=== PATIENT | female | born 1990 | race Native Hawaiian/Other Pacific Islander ===

== ENCOUNTER 2016-08-01 00:13 | Emergency (ER) | payer OTHER ==
[2016-08-01 00:33] VITALS: BP 116/72; RESP 16; TEMP 97.7; O2SAT 99
[2016-08-01] MEDS ORDERED: Sodium Chloride 0.9% 1,000 ML IV STA (00:53)
--- NOTE | 2016-08-01 00:55 | ED PDOC ---
HPI: General Adult Time Seen by Provider: 08/01/16 00:38 Chief Complaint (Nursing): Dizziness/Lightheaded History Per: Patient Additional Complaint(s): Pt. states for the past 2 hour she's felt nauseous and weak. Reports that she's also had 3 episodes of non-bloody watery diarrhea. Denies fever, recent travel, sick contacts, melena, hematemesis, BRBPR, previous abdominal surgeries. Past Medical History Reviewed: Historical Data, Nursing Documentation, Vital Signs Vital Signs: Last Vital Signs Temp 97.7 F 08/01/16 00:28 Pulse 75 08/01/16 03:31 Resp 16 08/01/16 00:28 BP 116/72 08/01/16 00:28 Pulse Ox 99 08/01/16 03:31 - Family History Family History: States: No Known Family Hx - Home Medications Home Medications: Ambulatory Orders Medication Instructions Recorded Ondansetron ODT [Zofran ODT] 4 mg PO TID #21 odt 08/01/16 - Allergies Allergies/Adverse Reactions: Allergies Allergy/AdvReac Type Severity Reaction Status Date / Time No Known Allergies Allergy Verified 08/01/16 00:51 Review of Systems ROS Statement: Except As Marked, All Systems Reviewed And Found Negative Gastrointestinal: Positive for: Nausea, Abdominal Pain, Diarrhea Physical Exam - Reviewed Nursing Documentation Reviewed: Yes Vital Signs Reviewed: Yes - Physical Exam Appears: Positive for: Well, Non-toxic, No Acute Distress Head Exam: Positive for: ATRAUMATIC, NORMAL INSPECTION, NORMOCEPHALIC Skin: Positive for: Normal Color, Warm, DRY Eye Exam: Positive for: EOMI, Normal appearance, PERRL ENT: Positive for: Normal ENT Inspection Neck: Positive for: Normal, Painless ROM Cardiovascular/Chest: Positive for: Regular Rate, Rhythm Respiratory: Positive for: CNT, Normal Breath Sounds Gastrointestinal/Abdominal: Positive for: Normal Exam, Bowel Sounds, Soft. Negative for: Tenderness Back: Positive for: Normal Inspection. Negative for: L CVA Tenderness, R CVA Tenderness Extremity: Positive for: Normal ROM Neurologic/Psych: Positive for: Alert, Oriented - Laboratory Results Result Diagrams: 08/01/16 01:00 08/01/16 01:00 - ECG ECG: Positive for: Interpreted By Me ECG Rhythm: Positive for: Sinus Rhythm. Negative for: ST/T Changes Rate: 75 O2 Sat by Pulse Oximetry: 99 - Progress ED Course And Treament: Labs ordered. Zofran 4mg IV, IV NS bolus x 1 given. Re-evaluation Time: 03:30 (Abd remains soft and non-tender.) Condition: Re-examined, Improved Disposition - Clinical Impression Clinical Impression: Gastroenteritis - Patient ED Disposition Is Patient to be Admitted: No - Disposition Referrals: [facility] [Outside] Disposition: Routine/Home Disposition Time: 03:31 Condition: IMPROVED Prescriptions: Ondansetron ODT [Zofran ODT] 4 mg PO TID #21 odt Instructions: Gastroenteritis (ED) Print Language: SYRI[place]
[2016-08-01 01:17] LABS: BASO % 0.6 % (0.0-2.0); EOS # 0.1 K/uL (0.0-0.7); EOS % 2.1 % (0.0-4.0); HEMATOCRIT 38.2 % (34.0-47.0); LYMPH # 1.5 K/uL (1.0-4.3); LYMPH % 22.8 % (20.0-40.0); MEAN CORPUSCULAR HEMOGLOBIN 29.4 pg (27.0-31.0); MEAN PLATELET VOLUME 9.4 fl (7.2-11.7); MONO # 0.3 K/uL (0.0-0.8); MONO % 5.1 % (0.0-10.0); NEUT # 4.5 K/uL (1.8-7.0); NEUT % 69.4 % (50.0-75.0); RED CELL DISTRIBUTION WIDTH 13.4 % (11.5-14.5); WHITE BLOOD COUNT 6.5 K/uL (4.8-10.8)
[2016-08-01 01:24] LABS: RBC URINE 1 /hpf (0-3); URINE BACTERIA RARE (<OCC); URINE BILIRUBIN NEGATIVE (NEGATIVE); URINE BLOOD NEGATIVE (NEGATIVE); URINE COLOR COLORLESS (YELLOW); URINE GLUCOSE (UA) NEG (Normal); URINE KETONE NEGATIVE (NEGATIVE); URINE LEUKOCYTE ESTERASE NEG Leu/uL (Negative); URINE PROTEIN NEGATIVE (NEGATIVE); URINE UROBILINOGEN 0.2-1.0 mg/dL (0.2-1.0); WBC URINE < 1 /hpf (0-5)
[2016-08-01 01:37] LABS: ALB/GLOB RATIO 1.3 (1.0-2.1); ALKALINE PHOSPHATASE 58 U/L (38-126); ALT/SGPT 37 U/L (9-52); AST/SGOT 34 U/L (14-36); BILIRUBIN,TOTAL 0.6 mg/dl (0.2-1.3); BLOOD UREA NITROGEN 15 mg/dl (7-17); CALCIUM 9.3 mg/dL (8.4-10.2); CARBON DIOXIDE 24 mmol/L (22-30); CHLORIDE 105 mmol/L (98-107); GFR AFRICAN-AMERICAN > 60; GLUCOSE,RANDOM 120 mg/dL (65-105); POTASSIUM 4.3 MMOL/L (3.6-5.0); SODIUM 139 mmol/l (132-148); TOTAL PROTEIN 8.3 G/DL (6.3-8.2)
[2016-08-01 03:32] VITALS: PULSE 75
== END 2016-08-01 03:37 | disposition home or self-care (01) ==
LOC: H.ER 00:13
DX: K52.9 Noninfective gastroenteritis and colitis, unspecified (principal); R42 Dizziness and giddiness; R19.7 Diarrhea, unspecified; R53.1 Weakness

== ENCOUNTER 2018-08-05 20:51 | Emergency (ER) | payer SELFPAY ==
[2018-08-05 21:13] VITALS: BMI 18.7
[2018-08-05 21:15] VITALS: RESP 16
[2018-08-05] MEDS ORDERED: Sodium Chloride 0.9% 1,000 ML IV STA (21:56)
[2018-08-05 22:38] LABS: BASO % 0.7 % (0.0-2.0); EOS # 0.1 K/uL (0.0-0.7); EOS % 1.1 % (0.0-4.0); LYMPH # 0.9 K/uL (1.0-4.3); LYMPH % 13.6 % (20.0-40.0); MEAN CELL VOLUME 88.3 fl (81.0-99.0); MEAN CORPUSCULAR HEMOGLOBIN 29.6 pg (27.0-31.0); MEAN CORPUSCULAR HGB CONC 33.6 g/dL (33.0-37.0); MEAN PLATELET VOLUME 9.4 fl (7.2-11.7); MONO # 0.2 K/uL (0.0-0.8); MONO % 2.7 % (0.0-10.0); NEUT # 5.2 K/uL (1.8-7.0); NEUT % 81.9 % (50.0-75.0); NRBC % 0.1 % (0.0-0.0); RBC 4.39 Mil/uL (3.80-5.20); RED CELL DISTRIBUTION WIDTH 12.7 % (11.5-14.5); WHITE BLOOD COUNT 6.4 K/uL (4.8-10.8)
[2018-08-05 22:45] LABS: SQUAMOUS EPITHIAL 9 /hpf (0-5); URINE AMORPHOUS SEDIMENT RARE /ul (<OCC); URINE BILIRUBIN NEGATIVE (NEGATIVE); URINE BLOOD NEGATIVE (NEGATIVE); URINE CLARITY CLOUDY (Clear); URINE COLOR YELLOW (YELLOW); URINE GLUCOSE (UA) NEG (NEGATIVE); URINE LEUKOCYTE ESTERASE NEG Leu/uL (Negative); URINE PROTEIN NEGATIVE (NEGATIVE); URINE UROBILINOGEN 0.2-1.0 mg/dL (0.2-1.0)
[2018-08-05 22:47] LABS: ALB/GLOB RATIO 1.4 (1.0-2.1); ALBUMIN 4.6 g/dL (3.5-5.0); ALT/SGPT 22 U/L (9-52); AST/SGOT 21 U/L (14-36); BLOOD UREA NITROGEN 12 mg/dl (7-17); CALCIUM 9.2 mg/dL (8.4-10.2); GFR NON-AFRICAN AMERICAN > 60; LIPASE 99 U/L (23-300)
--- NOTE | 2018-08-06 01:26 | ED PDOC ---
HPI: Abdomen Time Seen by Provider: 08/05/18 21:42 Chief Complaint (Nursing): GI Problem History Per: Patient Additional Complaint(s): Pt. states this morning she woke up with crampy diffuse abdominal pain associated with N/V/D and a gradual onset holocephalic headache. Reports she drank a [place] medicinal tea earlier today without any relief. Further reports abdominal pain is intermittent and has not returned since earlier today nor is it currently present. Denies fever, chills, sick contacts, recent travel, previous abdominal surgeries, melena, hematemesis, hematochezia, BRBPR, head injury, sudden onset headache. Past Medical History Reviewed: Historical Data, Nursing Documentation, Vital Signs Vital Signs: Last Vital Signs Temp 98.3 F 08/05/18 21:14 Pulse 85 08/05/18 21:14 Resp 16 08/05/18 21:14 BP 108/71 08/05/18 21:14 Pulse Ox 98 08/05/18 21:14 Primary Care Provider: Procedure,Nonphys - Medical History PMH: No Chronic Diseases - Surgical History Surgical History: No Surg Hx - Family History Family History: States: No Known Family Hx - Home Medications Home Medications: Ambulatory Orders Medication Instructions Recorded Ondansetron ODT [Zofran ODT] 4 mg PO TID #21 odt 08/01/16 Amoxicillin/Clavulanate [Augmentin 1 tab PO BID #9 tab 01/22/17 875 MG-125 MG] Metoclopramide [Reglan] 10 mg PO TID PRN #10 tab 08/06/18 - Allergies Allergies/Adverse Reactions: Allergies Allergy/AdvReac Type Severity Reaction Status Date / Time No Known Allergies Allergy Verified 08/05/18 21:13 Review of Systems ROS Statement: Except As Marked, All Systems Reviewed And Found Negative Gastrointestinal: Positive for: Nausea, Vomiting, Abdominal Pain, Diarrhea Neurological: Positive for: Headache Physical Exam - Physical Exam Appears: Positive for: Well, Non-toxic, No Acute Distress Head Exam: Positive for: ATRAUMATIC, NORMAL INSPECTION, NORMOCEPHALIC Skin: Positive for: Normal Color, Warm. Negative for: Rash Eye Exam: Positive for: Normal appearance, EOMI, PERRL Cardiovascular/Chest: Positive for: Regular Rate, Rhythm Respiratory: Positive for: Normal Breath Sounds. Negative for: Respiratory Distress Gastrointestinal/Abdominal: Positive for: Normal Exam, Soft. Negative for: Tenderness, Guarding, Rebound Neurological/Psych: Positive for: Awake, Alert, Oriented (x3) - Laboratory Results Result Diagrams: 08/05/18 22:34 08/05/18 22:34 Lab Results: Total Bilirubin 0.6 mg/dl (0.2-1.3) 08/05/18 22:34 AST 21 U/L (14-36) 08/05/18 22:34 ALT 22 U/L (9-52) 08/05/18 22:34 Alkaline Phosphatase 70 U/L (38-126) 08/05/18 22:34 Total Protein 8.0 G/DL (6.3-8.2) 08/05/18 22:34 Albumin 4.6 g/dL (3.5-5.0) 08/05/18 22:34 Globulin 3.4 gm/dL (2.2-3.9) 08/05/18 22:34 Albumin/Globulin Ratio 1.4 (1.0-2.1) 08/05/18 22:34 Lipase 99 U/L (23-300) 08/05/18 22:34 Urine Color Yellow (YELLOW) 08/05/18 22:34 Urine Clarity Cloudy (Clear) 08/05/18 22:34 Urine pH 7.0 (5.0-8.0) 08/05/18 22:34 Ur Specific [place] 1.018 (1.003-1.030) 08/05/18 22:34 Urine Protein Negative mg/dL (NEGATIVE) 08/05/18 22:34 Urine Glucose (UA) Neg mg/dL (NEGATIVE) 08/05/18 22:34 Urine Ketones 20 mg/dL (NEGATIVE) 08/05/18 22:34 Urine Blood Negative (NEGATIVE) 08/05/18 22:34 Urine Nitrate Negative (NEGATIVE) 08/05/18 22:34 Urine Bilirubin Negative (NEGATIVE) 08/05/18 22:34 Urine Urobilinogen 0.2-1.0 mg/dL (0.2-1.0) 08/05/18 22:34 Ur Leukocyte Esterase Neg Divya/uL (Negative) 08/05/18 22:34 Urine RBC (Auto) < 1 /hpf (0-3) 08/05/18 22:34 Urine Microscopic WBC 1 /hpf (0-5) 08/05/18 22:34 Ur Squamous Epith Cells 9 /hpf (0-5) H 08/05/18 22:34 Amorphous Sediment Rare /ul (<OCC) H 08/05/18 22:34 - ECG O2 Sat by Pulse Oximetry: 98 - Progress ED Course And Treament: Labs, IV NS bolus x 1, reglan 10mg IVPB ordered. 0000 On re-evaluation, pt. reports nausea has completely resolved. No vomiting or diarrhea while in ED. Headache has not improved. Toradol 30mg IVP ordered. 0124 On 2nd re-evaluation, pt. AOx3. Reports complete relief of headache. Feels much better. Informed of all results. Advised to f/u with PMD for further evaluation but is to return to ED immediately if symptoms worsen. Disposition - Clinical Impression Clinical Impression: Gastroenteritis - Patient ED Disposition Is Patient to be Admitted: No - Disposition Referrals: [facility] [Outside] Disposition: Routine/Home Disposition Time: 01:24 Condition: IMPROVED Additional Instructions: FOLLOW UP WITH YOUR DOCTOR FOR FURTHER EVALUATION RETURN TO ED IMMEDIATELY IF SYMPTOMS WORSEN GUERRERO JOHNSON, thank you for letting us take care of you today. Your provider was Bonny Gottlieb MD and you were treated for HEADACHE, VOMITING. The emergency medical care you received today was directed at your acute symptoms. If you were prescribed any medication, please fill it and take as directed. It may take several days for your symptoms to resolve. Return to the Emergency Department if your symptoms worsen, do not improve, or if you have any other problems. Please contact your doctor or call one of the physicians/clinics you have been referred to that are listed on the Patient Visit Information form that is included in your discharge packet. Bring any paperwork you were given at discharge with you along with any medications you are taking to your follow up visit. Our treatment cannot replace ongoing medical care by a primary care provider outside of the emergency department. Thank you for allowing the [email or web address] team to be part of your care today. If you had an X-Ray or CT scan: A Radiologist will review the ED reading if any change in treatment is needed we will contact you. If you had a blood, urine, or wound culture: It will take several days for the results, if any change in treatment is needed we will contact you. If you had an STI test: It will take 48 hours for the results. Please call after 1 week if you have not heard back. Prescriptions: Metoclopramide [Reglan] 10 mg PO TID PRN #10 tab PRN Reason: headache or nausea Instructions: Gastroenteritis (ED) Forms: [employer] ([place]), [facility] ED School/Work Excuse
[2018-08-06 01:47] VITALS: BP 116/74; PULSE 68; TEMP 97.8
[2018-08-06 04:56] VITALS: O2SAT 98
== END 2018-08-06 01:47 | disposition home or self-care (01) ==
LOC: H.ER 20:51
DX: K52.9 Noninfective gastroenteritis and colitis, unspecified (principal); Z79.899 Other long term (current) drug therapy
CPT/HCPCS: 80053; 81003; 81025; 83690; 85025; 96365; 96375; 99285; J1885; J2765; J7030